=== PATIENT | female | born 1970 | race Caucasian/White ===

== ENCOUNTER 2018-12-05 13:27 | Inpatient (IN) | payer OTHER ==
[~2018-12-05] VITALS: Ht 160 cm; Wt 69.4 kg
--- NOTE | ~2018-12-05 | P ---
[facility] [place] [address] [address] PROCEDURE REPORT Name: ALINA ONEAL Room #: 359-[facility] IN M.R.#: [id number] Admission: 12/05/18 ������������������ Attend Phys: Yash Soto MD Discharge: ������������������ Date of : 72 Report #: [id number] THIS REPORT FOR: //name// CC: Yash Soto [facility] physician/PCP OUTPATIENT UPPER ENDOSCOPY BRIEF HISTORY: The patient is a 48-year-old woman with history of peptic ulcer disease. She has previously been on a PPI, but has been off for several years. She has had problems with nausea and vomiting. She also reports hematemesis. In addition, she recently had problems with diarrhea after antibiotics. She also has had abdominal pain, which occurs in the epigastrium and radiates to the left upper quadrant. PREOPERATIVE DIAGNOSES: Hematemesis, nausea, vomiting, abdominal pain and diarrhea. POSTOPERATIVE DIAGNOSES: 1. Mild diffuse erythematous gastritis. 2. Small hiatus hernia. MEDICATIONS: Deep sedation with propofol per anesthesia. SPECIMEN: Biopsies of small bowel, rule out celiac disease. ESTIMATED BLOOD LOSS: 3 mL. PROCEDURE: EGD with biopsy. FINDINGS: Prior to propofol sedation, procedure of upper endoscopy discussed with the patient as well as potential risks and its complications. She indicates she understands and desires to proceed. DESCRIPTION OF PROCEDURE: With the patient in left lateral decubitus position, the Olympus video endoscope was inserted in the cervical esophagus under direct vision without difficulty. Examination of this organ through its entire length revealed normal esophageal mucosa down to the squamocolumnar junction. Squamocolumnar junction was inspected and noted to be unremarkable. No ulcers or erosions were seen. She had recent hematemesis, but Kelly-Magana tear was not seen. She reports vomiting bright red blood. I do not see evidence of peptic esophagitis. The scope was advanced into the stomach, was examined on end view as well as retroflexed views. There was erythema in the antrum, but no ulcers, erosions or bleeding lesions. Examination of proximal stomach on end view as well as retroflexed views revealed normal appearing mucosa without ulcer disease or mass lesions. The pylorus was normal. Duodenal sweep down the third portion was unremarkable. At that point, the scope was slowly withdrawn and [facility] [address] [place] [address] PROCEDURE REPORT Name: ALINA ONEAL Room #: 359-[facility] IN M.R.#: [id number] Admission: 12/05/18 ������������������ Attend Phys: Yash Soto MD Discharge: ������������������ Date of : 72 Report #: [id number] careful circumferential views obtained. Small bowel biopsy obtained to evaluate for celiac disease. We also obtained biopsies of the gastric mucosa to evaluate for H. pylori in view of her history of peptic ulcer disease. DISPOSITION: The patient with nausea, vomiting, hematemesis and abdominal pain. I do not find evidence of bleeding lesion. I do not find evidence of ulcer disease. There was no endoscopic evidence of outlet obstruction; however, there are retained food materials suggest gastroparesis. At this point, we would treat symptomatically. We will have her continue PPI. We would Zofran for nausea and vomiting. Her narcotics may be playing a role with regards to nausea and vomiting. A gastric emptying study would be consideration, but would be potentially invalid as long as she is taking narcotics. If nausea and vomiting continues, scopolamine patch could be used as well. Ideally, we would like to see a reduction or sensation of her use of narcotics. ��������������������������������������������� ���������������������������������������� By: ��������������������������������������������� 1244 0623 Shad Srinivasan MD /nt
[2018-12-05 13:28] VITALS: BP 136/83
[2018-12-05 13:48] LABS: URINE BILIRUBIN NEGATIVE (Negative); URINE BLOOD 1+ (Negative); URINE CLARITY CLEAR; URINE COLOR YELLOW; URINE GLUCOSE-RANDOM* NEGATIVE (Negative); URINE KETONES NEGATIVE (Negative); URINE LEUKOCYTES-REFLEX NEGATIVE (Negative); URINE NITRITE-REFLEX NEGATIVE (Negative); URINE PROTEIN (DIPSTICK) NEGATIVE (Negative); URINE UROBILINOGEN 0.2 E.U./dl (0.2-1.0)
[2018-12-05 14:01] LABS: BACTERIA-REFLEX 1-9 Few /HPF (None Seen); CASTS None Seen /LPF (None Seen); CRYSTALS None Seen /LPF (None Seen); SQUAMOUS None Seen /LPF (0-3); URINE RBC None Seen /HPF (0-2)
[2018-12-05 14:10] LABS: ABSOLUTE NEUTROPHILS 5.6 thou/uL (1.4-8.2); BASOPHILS 1.1 % (0.0-2.0); EOSINOPHILS 0.7 % (0.0-3.0); HEMATOCRIT 40.5 % (37.0-47.0); HEMOGLOBIN 13.8 gm/dL (12.0-15.0); LYMPHOCYTES 15.8 % (24.0-44.0); MCH 32.1 pg (26.0-34.0); MCV 94.5 fL (80.0-100.0); PLATELET COUNT 363 thou/uL (150-400); POLYS 71.4 % (36.0-66.0); RBC 4.28 mil/uL (4.20-5.00); RDW 14.6 % (10.5-14.5); WBC 7.8 thou/uL (4.0-11.0)
[2018-12-05 14:12] LABS: ANION GAP 13 mmol/L (7-16); BUN 5 mg/dL (7-18); CALCIUM 9.2 mg/dL (8.5-10.1); CHLORIDE 101 mmol/L (98-107); CO2 24 mmol/L (21-32); CREATININE 0.7 mg/dL (0.6-1.0); GLUCOSE 107 mg/dL (74-106); POTASSIUM 3.3 mmol/L (3.5-5.1); SODIUM 138 mmol/L (136-145)
[2018-12-05 14:22] LABS: ALBUMIN 4.2 g/dL (3.4-5.0); LIPASE 183 U/L (73-393); SGOT 17 U/L (15-37); SGPT 15 U/L (30-65); TOTAL BILIRUBIN 0.2 mg/dL (<0.1-1.0); TOTAL PROTEIN 7.9 g/dL (6.4-8.2); TROPONIN-I <0.06 ng/mL (<0.06)
[2018-12-05] MEDS ORDERED: NOHOMEMEDICATIONS (15:30)
[2018-12-05 18:06] VITALS: BP 131/77
[2018-12-05 18:13] VITALS: BP 131/77
[2018-12-05 19:21] VITALS: BP 148/73
[2018-12-06 00:38] VITALS: BP 126/84
--- NOTE | 2018-12-06 02:20 | NUR ---
ASSUMED CARE OF PATIENT FROM ER AT 1920. PATIENT VISIBLY IN PAIN AND UNCOMFORTABLE. DESCRIBES PAIN EXCRUTIATING AND WORSENING. RESTING IN BED, UNABLE TO SLEEP TONIGHT. PAIN AND NAUSEA MEDS GIVEN ORDERED. LITTLE RELIEF. NPO AFTER MIDNIGHT. POC GOALS ESTABLISHED.
[2018-12-06 04:30] VITALS: BP 125/66
[2018-12-06 05:04] LABS: HEMATOCRIT 35.1 % (37.0-47.0); MCHC 33.6 g/dL (28.0-37.0); MCV 95.1 fL (80.0-100.0); RBC 3.7 mil/uL (4.20-5.00); WBC 6.4 thou/uL (4.0-11.0)
[2018-12-06 05:06] LABS: HEMOGLOBIN 11.8 gm/dL (12.0-15.0)
[2018-12-06 05:15] LABS: CALCIUM 8.6 mg/dL (8.5-10.1); CREATININE 0.7 mg/dL (0.6-1.0); POTASSIUM 3.1 mmol/L (3.5-5.1)
[2018-12-06 08:15] VITALS: BP 139/76
--- NOTE | 2018-12-06 09:41 | EKG ---
[place] [address] [facility] [email or web address] [address] ELECTROCARDIOGRAM REPORT Name: ALINA ONEAL Room #: 359-P ADM IN M.R.#: [id number] ������������������ Admission: 12/05/18 ������������������ Attend Phys: Yash Soto MD Discharge: ������������������ Date of : 72 Report #: [id number] ����������������������������������������������������������������� [id number] THIS REPORT FOR: //name// [facility] ED Test Date: 2018-12-05 Test Time: 14:16:48 Pat Name: ALINA ONEAL Department: Room: 359 Gender: F Administrative Support Specialist: : 1970 Requested By: Jeremie Thomson Order Number: [id number] MD: Onofre Martin Measurements Intervals Devens Rate: 91 P: 49 CO: 131 QRS: 29 QRSD: 101 T: 32 QT: 390 QTc: 480 Interpretive Statements Sinus rhythm Borderline prolonged QT interval Baseline wander in lead(s) II,V2 No previous ECG available for comparison Electronically Signed On 12-06-2018 9:40:50 CDT by Onofre Martin [email or web address] ��������������������������������������������� <ELECTRONICALLY SIGNED> ���������������������������������������� By: Onofre Martin MD, [facility] ��������������������������������������������� 12/06/18 0940 1416 1416 Onofre Martin MD, FACC /EPI
--- NOTE | 2018-12-06 15:20 | NUR ---
ASSESSMENT: CM REVIEWED CHART AND MET WITH PATIENT AT THE BEDSIDE. PT IS ALERT AND ORIENTED X4. PT REPORTS THAT SHE LIVES AT HER WITH HER FIANCE. SHE STATES THEY JUST MOVED TO A HOUSE. PT REPORS THAT SHE IS INDEPENDENT WITH ADLS AND AMBULATION. PT DENIES HAVING HH IN THE PAST. PT DENIES HAVING DME. PT WAS ADMITTED WITH ABDOMINAL PAIN NAUSEA/VOMITTING/DIARRHEA. PT IS TO HAVE EGD. CM DISCUSSED ROLE. PT DOES NOT CURRENTLY HAVE INSURANCE. REFERRAL WAS SENT TO [email or web address]. PT REPORTS SHE DOES NOT HAVE A PCP. CM PROVIDED PT WITH [facility], FIND A PHYSICIAN RESOURCE FORM. PT REPORTS NO FURTHER NEEDS FROM CM AT THIS TIME. CM WILL CONTINUE TO FOLLOW TO ASSIST NEEDED.
[2018-12-06 17:06] VITALS: BP 129/76
--- NOTE | 2018-12-06 18:09 | NUR ---
Assumed care of patient at 0700. Vitals have been stable. Patient alert and oriented x4. Complaints of epigastric abdominal pain, constant sharp/ burning pain. States eating or drinking in the past has made the pain worse. Also complaints of nausea. Partially controlled with PRN Morphine and Zofran. GI consult this afternoon. Plan for EGD tomorrow; okay for clear liquids now, advance as tolerated, NPO after midnight. Dr. Scherer discontinued Morphine. Additional orders for PRN Castaner, GI cocktail. Administered to patient, along with scheduled Carafate. No real improvement in pain yet, but patient states that GI cocktail has helped in the past, so continue to monitor. Poor appetite. IVF as ordered. Up ad zahira in room, steady gait. Voiding adequately. Remains in Special Contact isolation for rule out C.diff. No sample yet collected. Not yet progressing towards POC. Will continue to monitor.
[2018-12-06 19:40] VITALS: BP 123/76
[2018-12-07 05:05] LABS: HEMATOCRIT 39.1 % (37.0-47.0); HEMOGLOBIN 13.2 gm/dL (12.0-15.0); MCH 32.1 pg (26.0-34.0); MCHC 33.7 g/dL (28.0-37.0); MCV 95.3 fL (80.0-100.0); RBC 4.1 mil/uL (4.20-5.00); RDW 14.8 % (10.5-14.5); WBC 5.5 thou/uL (4.0-11.0)
--- NOTE | 2018-12-07 05:07 | NUR ---
ASSUMED PT CARE AROUND 1900. A&OX4. C/O MILD NAUSEA. ZOFRAN GIVEN. STILL C/O EPIGASTRIC PAIN. PT STATES THE ONLY MEDICATION THAT HELPS WITH PAIN IS THE GI COCKTAIL. UP AD JACQUES AROUND THE ROOM WITH STEADY GAIT. NPO AFTER MIDNIGHT FOR EGD TODAY. PROGRESSING SLOWLY TOWARD POC GOALS. WILL CONTINUE TO MONITOR FURTHER.
[2018-12-07 05:30] VITALS: BP 127/84
[2018-12-07 08:23] VITALS: BP 127/76
[2018-12-07 16:32] VITALS: BP 132/78
--- NOTE | 2018-12-07 17:32 | NUR ---
ASSUMED PATIENT CARE AT 0700. A/O X4. TOLERATED EGD THIS AFTERNOON. NO LOOSE STOOL NOTED. NO N/V. PROGRESSING TOWARDS POC GOALS,
[2018-12-07 19:35] VITALS: BP 127/68
[2018-12-08 04:34] VITALS: BP 132/74
--- NOTE | 2018-12-08 05:34 | NUR ---
PATIENT STATES SLEPT 2 HOURS TONIGHT. STATES SHE GOES DAYS WITHOUT SLEEPING AT HOME. STATES IS STILL HAVING LIQUID STOOLS BUT HAS NOT SAVED ANY THIS SHIFT FOR NURSE TO SEE. PLACED COMODE AT BEDSIDE AND ASKED TO GO IN COMODE SO WE CAN VISUALIZE. UP AD JACQUES IN ROOM WITH STEADY GAIT. WORKING ON GOALS AND PLAN OF CARE FOR NOC. PROGRESSING SLOWLY TOWARDS DISCHARGE GOALS. CONTINUE TO ASSES CLOESLY. GI COCKTAIL GIVEN X2 THIS SHIFT FOR COMPLAINTS OF GI DISCOMFORT.
[2018-12-08 07:13] VITALS: BP 129/75
[2018-12-08 16:00] VITALS: BP 122/76
--- NOTE | 2018-12-08 18:17 | NUR ---
PLEASANT. SHE RESTARED ON CDIFF ISOLATION STOOL IS IN THE LAB PENDING RESULTS. SHE HAS NOT HAD ANY MORE DIARRHEAL STOOLS TODAY. GI SAW HER AND ARE PLANNING A POSSIBLE COLONOSCOPY ON MONDAY. SHE HAS NOT VOICED ANY COMPLAIN OF PAIN. WILL CONT WITH PLAN OF CARE.
[2018-12-08 20:02] VITALS: BP 127/82
[2018-12-09 03:40] VITALS: BP 131/83
--- NOTE | 2018-12-09 04:02 | NUR ---
RESTING QUIETLY TONIGHT. SHE DENIES HAVING ANY LOOSE STOOLS TONIGHT. THE RESULTS OF THE CDIFF SPECIMEN ARE PENDING IN THE LAB. SHE IS VERY TALKATIVE ABOUT HER HEALTH AND WELLNESS. CAREPLAN REVIEWED. PROGRESSING TOWARD DISCHARGE GOALS
[2018-12-09 08:52] VITALS: BP 118/69
[2018-12-09 10:28] LABS: CALCIUM 8.9 mg/dL (8.5-10.1); CREATININE 0.7 mg/dL (0.6-1.0); POTASSIUM 3.1 mmol/L (3.5-5.1)
[2018-12-09 10:51] VITALS: BP 125/73
[2018-12-09 16:29] VITALS: BP 118/75
--- NOTE | 2018-12-09 18:28 | NUR ---
PATIENT WILL HAVE A COLONOSCOPY TOMORROW. SHE HAS STARTED WITH THE MIRALAX. INSTRUCTED ON HOW TO TAKE. SHE STATES SHE WILL DO HER BEST. SHE HAS HAD ON DIARHEAL STOOL TODAY. NO PAIN. WILL CONT WITH PLAN OF CARE.
[2018-12-09 19:24] VITALS: BP 122/80
--- NOTE | 2018-12-10 00:48 | NUR ---
PT REPORTING THAT HER BM ARE ALL LIQUID AND YELLOWISH IN COLOR. "THERE ALL JUST MUCOUSY." ASKED PT TO CALL WITH NEXT BM TO VERIFY READINESS FOR COLONOSCOPY IN AM.
[2018-12-10 03:47] VITALS: BP 115/75
--- NOTE | 2018-12-10 04:57 | NUR ---
PT MAKING SLOW PROGRESS TOWARDS GOALS. PT REPORTING REPETITIVE EPISODES OF DIARHEA. "ITS JUST YELLOW, MUCOUSY." DID OBSERVED YELLOW LIQUID STOOL WITH VERY FEW FLAKES OF STOOL THIS MORNING. PT REPORTS SHE TOOK THE FIRST BOTTLE OF MIRALAX BUT DID NOT OPEN THE SECOND ONE. NO REPORTS OF NAUSEA. X2 DOSES OF LORTAB FOR ABD PAIN THAT FEELS LIKE "CRAMPING."
[2018-12-10 07:31] VITALS: BP 116/74
[2018-12-10] MEDS ORDERED: PROTONIX40 M1 PO (12:51)
[2018-12-10] MEDS ORDERED: CARAFATE 11 GM/10 M1 PO (12:51)
[2018-12-10 13:14] VITALS: BP 116/74
--- NOTE | 2018-12-10 17:06 | PATH ---
[facility] [address] [place] [address] PATHOLOGY RPT PROCEDURE Name: YAJAIRA CABRERA Room #: 359-P DIS IN M.R.#: [id number] ������������������ Admission: 12/05/18 ������������������ Date of : 72 Discharge: 12/10/18 Report #: [id number] Path Case #: [id number] [facility] Accession Number: [id number] . 01 Material submitted: . PART A: duodenum - BX DUODENUM R/O CELIAC DZ HX DIARRHEA PART B: stomach - BX GASTRITIS . 01 Clinical history: . Pre-OP DX: Hematemesis, nausea with vomiting, diarrhea Post-OP DX: Gastritis, small hiatal hernia . 02 Diagnosis: A. Small bowel mucosa, duodenum rule out celiac disease, endoscopic biopsy: - Mild nonspecific acute and chronic inflammation. - Negative for villous blunting or increase in intraepithelial lymphocytes. . B. Gastric mucosa, gastritis, endoscopic biopsy: - Mild chronic gastritis with features of reactive gastropathy. - Negative for intestinal metaplasia or atrophy. - Negative for Helicobacter pylori (properly controlled immunohistochemical stain performed). . (IUV:liquor commissioner; 12/10/2018) MBR/12/10/2018 . 02 Electronically signed: . Haily Neville MD, Pathologist NPI- [id number] . 01 Gross description: . A. Received in formalin labeled "Yajaira Cabrera, BX duodenum, rule out celiac disease, Hx diarrhea," are multiple segments of carson soft tissue measuring 1.5 x 0.6 x 0.1 cm in aggregate dimensions. The specimen is filtered and entirely submitted in cassette A1. . B. Z Received in formalin labeled "Sweetie Cabrerana, BX gastritis, rule out H. pylori," are 4 segments of carson soft tissue measuring 1.3 x 0.9 x 0.2 cm in aggregate dimensions and ranging from 0.4 to 0.8 cm in maximum dimension. The specimen is submitted entirely in cassette B1. (TSD; 12/07/2018) TOB/TOB . 02 Pathologist provided ICD-10: K29.80, K29.50, K31.9 [place] [address] PATHOLOGY RPT PROCEDURE Name: YAJAIRA CABRERA Room #: 359-P DIS IN M.R.#: [id number] ������������������ Admission: 12/05/18 ������������������ Date of : 72 Discharge: 12/10/18 Report #: [id number] Path Case #: [id number] . 02 [facility] . [id number], [id number], [id number] Specimen Comment: A courtesy copy of this report has been sent to Specimen Comment: [phone], . Specimen Comment: Report sent to / DR CARDOZO Performed at: [address], [place] [id number] MD Atul Buckley MD Phone: [phone] Performed at: [address] [id number] MD Haily Neville MD Phone: [phone]
--- NOTE | 2018-12-11 11:09 | P ---
[facility] [place] [address] [place] [address] PROCEDURE REPORT Name: ALINA ONEAL Room #: 359-P [facility] IN M.R.#: [id number] Admission: 12/05/18 ������������������ Attend Phys: Yash Soto MD Discharge: 12/10/18 ������������������ Date of : 72 Report #: [id number] THIS REPORT FOR: //name// CC: Yash Soto MD [facility] physician/PCP DATE OF SERVICE: 12/10/2018 PROCEDURE PERFORMED: Colonoscopy with biopsies. HISTORY OF PRESENT ILLNESS: The patient is a 48-year-old female who was admitted on 12/05/2018 with abdominal pain, nausea, vomiting, diarrhea. She apparently was having hematemesis and underwent an upper endoscopy by Dr. Srinivasan my partner last Monday, which showed mild erythematous gastritis and a small hiatal hernia. Biopsies were obtained to rule out H. pylori and celiac sprue, both of which are pending at this time. Because of the diarrhea, stool studies have been obtained. The patient states the diarrhea has been ongoing for weeks. She had antibiotics fairly recently was placed on Flagyl on admission. Her C. diff here yesterday around the was negative and stool cultures were negative. Campylobacter was also negative. Plan is for colonoscopy today. DESCRIPTION OF PROCEDURE: The risks and benefits of the procedure were explained to the patient, those risks including but not limited to bleeding, perforation, the risk of sedation. She understood these risks and gave informed consent. Sedation was given using propofol per anesthesia. Next, a digital rectal exam was initially performed, which was normal. Next, using a standard Olympus colonoscope, the scope was placed in the patient's anus and advanced under direct vision to the cecum. The overall prep was good. There was actually a small amount of formed stool in the right colon, but most areas were well visualized. The cecum and ileocecal valve were normal in appearance. Terminal ileum was intubated and normal in appearance. Ascending colon was normal. In the transverse colon, a 3 mm sessile polyp was noted. This was removed with cold forceps, otherwise normal. Because of her history of chronic diarrhea, random biopsies were obtained today to rule out the possibility of microscopic colitis. There was no evidence of obvious colitis on exam today. The descending and sigmoid colon were normal. The rectal mucosa was normal. On retroflexion, no abnormalities were noted. The scope was then withdrawn and the procedure terminated. The patient tolerated the procedure well. IMPRESSION: 1. Small colonic polyp. 2. Otherwise, normal colonoscopy. RECOMMENDATIONS: [address] [address] PROCEDURE REPORT Name: ALINA ONEAL Room #: 359-P [facility].#: [id number] Admission: 12/05/18 ������������������ Attend Phys: Yash Soto MD Discharge: 12/10/18 ������������������ Date of : 72 Report #: [id number] 1. Await biopsy results. 2. If polyp is hyperplastic, repeat in 10 years; if adenomatous polyp, repeat in 5 years. 3. If biopsies are negative for microscopic colitis, consider the diagnosis of irritable bowel syndrome. The patient did respond to Lomotil. We will continue this for the near future while awaiting biopsy results. Thank you for allowing me to participate in her care. ��������������������������������������������� <ELECTRONICALLY SIGNED> ���������������������������������������� By: Martin Chiu MD ��������������������������������������������� 12/11/18 1109 1130 0203 Martin Chiu MD /nt
--- NOTE | 2018-12-12 12:06 | PATH ---
[facility] [place] [address] PATHOLOGY RPT PROCEDURE Name: YAJAIRA CABRERA Room #: 359-P [facility] IN M.R.#: [id number] ������������������ Admission: 12/05/18 ������������������ Date of : 72 Discharge: 12/10/18 Report #: [id number] Path Case #: [id number] [facility] Accession Number: [id number] . 01 Material submitted: . PART A: colon - RANDOM COLON BX R/O MICROSCOPIC COLITIS PART B: colon - BX POLYP AT TRANSVERSE COLON. Modifiers: transverse . 01 Clinical history: . Diarrhea Colon polyp, chronic diarrhea A: Rule out microscopic colitis . 02 Diagnosis: A. Large intestinal mucosa, random colon rule out microscopic colitis, endoscopic biopsy: - No diagnostic abnormalities present. - Negative for microscopic colitis. - Negative for dysplasia or malignancy. . B. Polyp, transverse colon, endoscopic biopsy: - Compatible with a hyperplastic polyp. - Negative for dysplasia. . (IUV:mml; 12/11/2018) QLM/12/11/2018 . 02 Electronically signed: . Haily Neville MD, Pathologist NPI- [id number] . 01 Gross description: . A. The specimen is received in formalin, labeled "Yajaira Cabrera, random colon biopsies" and consists of 5 fragments of pink-carson tissue measuring 0.9 x 0.7 x 0.2 cm in aggregate which are entirely submitted in A1. . B. The specimen is received in formalin, labeled "Yajaira Cabrera, BX polyp at transverse colon" and consists of a fragment of pink-carson tissue measuring 0.6 x 0.3 x 0.1 cm which is entirely submitted in B1. (SDY; 12/10/2018) BUSTERU/BUSTERU . 02 Pathologist provided ICD-10: K63.5 . 02 CPT . 312657, [id number] [address] [address] PATHOLOGY RPT PROCEDURE Name: YAJAIRA CABRERA Room #: 359-P DIS IN M.R.#: [id number] ������������������ Admission: 12/05/18 ������������������ Date of : 72 Discharge: 12/10/18 Report #: [id number] Path Case #: [id number] Specimen Comment: A courtesy copy of this report has been sent to Specimen Comment: [phone], . Specimen Comment: Report sent to / DR CARDOZO Specimen Comment: A duplicate report has been generated due to demographic updates. Performed at: [address] [facility] [address], [place], [place] [id number] MD Atul Buckley MD Phone: [phone] Performed at: [address] [facility] [id number] MD Haily Neville MD Phone: [phone]
== END 2018-12-10 12:35 | disposition home or self-care (01) | DRG 392 ==
LOC: ER 13:27 → 3W 16:36 → EROBS 16:36 → 3W 19:22
PROVIDERS: Emergency Medicine; Internal Medicine; ADMIT Hospitalist
PROC: 0DBL8ZZ Excision of Transverse Colon, Via Natural or Artificial Opening Endoscopic (ICD-10-PCS; principal; 2018-12-05)
PROC: 0DB68ZX Excision of Stomach, Via Natural or Artificial Opening Endoscopic, Diagnostic (ICD-10-PCS; principal; 2018-12-05)
PROC: 0DB98ZX Excision of Duodenum, Via Natural or Artificial Opening Endoscopic, Diagnostic (ICD-10-PCS; principal; 2018-12-05)
PROC: 0DBE8ZX Excision of Large Intestine, Via Natural or Artificial Opening Endoscopic, Diagnostic (ICD-10-PCS; principal; 2018-12-05)
DX: K29.70 Gastritis, unspecified, without bleeding (principal); K92.2 Gastrointestinal hemorrhage, unspecified; K58.0 Irritable bowel syndrome with diarrhea; F17.210 Nicotine dependence, cigarettes, uncomplicated; K44.9 Diaphragmatic hernia without obstruction or gangrene; K21.9 Gastro-esophageal reflux disease without esophagitis; E87.6 Hypokalemia; Z87.11 Personal history of peptic ulcer disease
CPT/HCPCS: 10879; 62110; 62900; 70005